=== PATIENT | female | born 1955 | race Caucasian/White ===

== ENCOUNTER → 2021-04-03 | Outpatient (CLI) | payer MEDICARE, OTHER ==
[2021-04-03 15:06] LABS: African American GFR (CKD) >90 (>60 ml/min/1.73 sqM); Blood Urea Nitrogen 13 mg/dL (7-17); Non-African American GFR(CKD) >90 (>60 ml/min/1.73 sqM)
--- NOTE | 2021-04-03 15:48 | CT ---
EXAMINATION TYPE: CT chest w con DATE OF EXAM: 04/03/2021 COMPARISON: None HISTORY: Pt tripped and fell directly on chest, contusion of chest, pain in both front and back. CT DLP: 204.50 mGycm Automated exposure control for dose reduction was used. CONTRAST: CT scan of the chest is performed with IV Contrast, patient injected with 100 mL of Isovue 300. FINDINGS: LUNGS: The lungs are grossly clear, there is no concerning parenchymal mass or nodule identified. T here is no pleural effusion or pneumothorax seen. The tracheobronchial tree is patent. MEDIASTINUM: There are no greater than 1 cm hilar or mediastinal lymph nodes. No pericardial effusi on is seen. Thoracic aorta is of normal caliber. The heart is not enlarged. UPPER ABDOMEN: No significant abnormality appreciated. OTHER: Moderate hypertrophic changes at the approximate T8-T9 level with effacement of the thecal sa c and central stenosis suggested. IMPRESSION: No evidence for rib fracture, contusive change or pneumothorax at this time. Moderate hypertrophic ch anges at the approximate T8-T9 level with effacement of the thecal sac and central stenosis suggested .
== END | disposition home or self-care (01) ==
LOC: RADCTMAIN 14:24
PROVIDERS: ATTEND Nurse Practitioner
DX: S20.20XA Contusion of thorax, unspecified, initial encounter (principal); W19.XXXA Unspecified fall, initial encounter
CPT/HCPCS: 82565; 84520; 71260; 36415; Q9967

== ENCOUNTER → 2022-02-13 | Outpatient (CLI) | payer MEDICARE, OTHER ==
--- NOTE | 2022-02-13 11:28 | CT ---
EXAMINATION TYPE: CT abdomen pelvis wo con DATE OF EXAM: 02/13/2022 COMPARISON: None HISTORY: 66-year-old female K57.92, diverticulitis, diarrhea, blood in stool, LLQ pain CT DLP: 473 mGycm. Automated exposure control for dose reduction was used. TECHNIQUE: Contiguous axial scanning of the abdomen and pelvis without IV contrast. Coronal and sagit breann reconstructions performed. FINDINGS: Heart normal size without pericardial effusion. Some strandy atelectasis left base without pleural ef fusion. Noncontrast appearance of the liver, gallbladder, adrenal glands, kidneys, spleen, and pancreas are w ithin normal. No dilated small bowel, free fluid, or free air. No mesenteric or retroperitoneal lymphadenopathy. Normal appendix. Mild diverticulosis proximal to mid sigmoid colon. Mildly redundant distal sigmoid colon. There is mi ld pericolonic fat stranding along the lower descending to proximal sigmoid colon with corresponding mild wall thickening. Bladder nondistended. Uterus surgically absent. Neither ovary clearly visualized. Multiple surgical c lips along the right side of the pelvis. No abnormal fluid collection in the pelvis or pelvic lymphad enopathy. Bones: Mild degenerative change of the hips. S-shaped curvature lumbar spine with some associated deg enerative disc disease. IMPRESSION: Sigmoid diverticulosis. There is mild wall thickening in mild fat stranding along the lower descendin g and proximal sigmoid colon. Findings could represent mild acute diverticulitis or other nonspecific mild colitis. No abscess or free air.
== END | disposition home or self-care (01) ==
LOC: RADCTMAIN 10:50
PROVIDERS: ATTEND Family Medicine
DX: K57.30 Diverticulosis of large intestine without perforation or abscess without bleeding (principal); K63.89 Other specified diseases of intestine
CPT/HCPCS: 74176

== ENCOUNTER → 2023-04-22 | Outpatient (CLI) | payer MEDICARE, OTHER ==
--- NOTE | 2023-04-22 11:35 | US ---
EXAMINATION TYPE: US venous doppler duplex LE LT DATE OF EXAM: 04/22/2023 11:28 AM COMPARISON: NONE CLINICAL INDICATION: Female, 67 years old with history of LLE; M79.662 PAIN IN LEFT LOWER LEG; Edema left leg. Pain left ankle SIDE PERFORMED: left TECHNIQUE: The lower extremity deep venous system is examined utilizing real time linear array sonog jethro with graded compression, doppler sonography and color-flow sonography. VESSELS IMAGED: Common Femoral Vein Deep Femoral Vein Greater Saphenous Vein * Femoral Vein Popliteal Vein Small Saphenous Vein * Proximal Calf Veins (* superficial vessels) Left Leg: No evidence of DVT IMPRESSION: Grayscale, color doppler, spectral doppler imaging performed of the deep veins of the lo wer extremities. There is normal flow, compressibility, vascular waveforms.
[2023-04-22 13:08] LABS: ALT 26 U/L (4-34); AST 25 U/L (14-36); African American GFR (CKD) >90 (>60 ml/min/1.73 sqM); Albumin 4.1 g/dL (3.5-5.0); Albumin/Globulin Ratio 1.3; Alkaline Phosphatase 69 U/L (38-126); Anion Gap 7 mmol/L; Blood Urea Nitrogen 12 mg/dL (7-17); Calcium 8.8 mg/dL (8.4-10.2); Carbon Dioxide 27 mmol/L (22-30); Chloride 106 mmol/L (98-107); Globulin 3.1 g/dL; Glucose 101 mg/dL (74-99); Non-African American GFR(CKD) >90 (>60 ml/min/1.73 sqM); Potassium 4.3 mmol/L (3.5-5.1); Sodium 140 mmol/L (137-145); Total Bilirubin 0.6 mg/dL (0.2-1.3); Total Protein 7.2 g/dL (6.3-8.2)
[2023-04-22 13:14] LABS: NT-Pro-B-Type Natriuretic Pept 68 pg/mL
[2023-04-22 19:16] LABS: Basophils # (A) 0.05 X 10*3/uL (0.00-0.10); Basophils % (A) 0.8 %; Eosinophils # (A) 0.06 X 10*3/uL (0.04-0.35); Eosinophils % (A) 0.9 %; Lymphocytes % (A) 31.4 %; MCH 29.4 pg (27.0-32.0); MCHC 31.6 d/dL (32.0-37.0); MCV 93.1 FL (80.0-97.0); Mean Platelet Volume 10.7 FL (9.5-12.2); Monocytes # (A) 0.39 X 10*3/uL (0.20-1.00); Monocytes % (A) 6.1 %; NRBC Per 100 WBC 0 X 10*3/uL (0.00-0.01); Neutrophils # (A) 3.85 X 10*3/uL (1.80-7.70); Neutrophils % (A) 60.5 %; Platelet Count 216 X 10*3/uL (140-440); RBC 4.08 X 10*6/uL (4.10-5.20); RDW 14.3 % (11.5-14.5); WBC 6.37 X 10*3/uL (4.50-10.00)
== END | disposition home or self-care (01) ==
LOC: RADUSWWP 10:59
PROVIDERS: ATTEND Family Medicine
DX: M79.662 Pain in left lower leg (principal); R60.0 Localized edema
CPT/HCPCS: 80053; 83880; 85025